=== PATIENT | female | born 1945 | race Caucasian/White ===

== ENCOUNTER 2021-06-17 12:21 | Emergency (ER) | payer MEDICARE ==
[~2021-06-17] VITALS: Ht 157.5 cm; Wt 86.2 kg
[~2021-06-17 12:21] MED LIST: ASPI81EC PO; FAMO20 PO; RXONDA4ODT MM
[2021-06-17] MEDS ORDERED: ACET325 PO (12:30)
[2021-06-17 12:37] LABS: BASOPHILS ABSOLUTE AUTO 0.02 K/mm3 (0.00-0.23); BASOPHILS PERCENT AUTO 0 % (0-2); EOSINOPHILS ABSOLUTE AUTO 0.02 K/mm3 (0.00-0.68); EOSINOPHILS PERCENT AUTO 0 % (0-6); Hematocrit 43.2 % (33.0-51.0); Hemoglobin 14.5 g/dL (11.5-16.0); IMMATURE GRAN ABSOLUTE AUTO 0.04 K/mm3 (0.00-0.10); IMMATURE GRAN PERCENT AUTO 0 % (0-1); LYMPHOCYTES ABSOLUTE AUTO 1.53 K/mm3 (0.84-5.20); LYMPHOCYTES PERCENT AUTO 16 % (21-46); MONOCYTES ABSOLUTE AUTO 0.97 K/mm3 (0.16-1.47); MONOCYTES PERCENT AUTO 10 % (4-13); Mean Corpuscular HGB 32.7 pg (26.0-34.0); Mean Corpuscular HGB Conc 33.6 g/dL (31.5-36.5); Mean Corpuscular Volume 98 fL (80-100); Mean Platelet Volume 9.7 fL (9.1-12.4); NEUTROPHILS ABSOLUTE AUTO 6.77 K/mm3 (1.96-9.15); NEUTROPHILS PERCENT AUTO 72 % (41-73); Platelet Count 225 K/mm3 (150-400); RDW Coefficient Variation 12.8 % (11.7-14.2); RDW Standard Deviation 45.9 fL (35.1-46.3); Red Blood Cell Count 4.43 M/mm3 (3.80-5.20); White Blood Cell Count 9.35 K/mm3 (4.00-11.30)
[2021-06-17 12:58] LABS: Alanine Aminotransfer (ALT/SGP 53 U/L (12-78); Albumin, Blood 3.6 g/dL (3.4-5.0); Albumin/Globulin Ratio 0.9 (0.8-1.8); Alk Phos 66 U/L (50-136); Anion Gap 6 mmol/L (6-16); Aspartate Aminotrans (AST/SGOT 32 U/L (12-37); Bilirubin, Total 0.4 mg/dL (0.1-1.0); Blood Urea Nitrogen 22 mg/dL (8-24); Bun/Creatinine Ratio 27.4 (12.0-20.0); CO2, Blood 25 mmol/L (21-32); Calcium, Blood 9.4 mg/dL (8.5-10.1); Chloride, Blood 108 mmol/L (98-108); Globulin, Blood 4.1 g/dL (2.2-4.0); Glomerular Filtration Rate >60 (60-); Glucose, Blood 105 mg/dL (70-99); Sodium, Blood 139 mmol/L (136-145); Total Protein, Blood 7.7 g/dL (6.4-8.2)
[2021-06-17] MEDS ORDERED: MECL25 PO (14:10)
== END 2021-06-17 14:15 | disposition home or self-care (01) ==
LOC: ER 12:21
PROVIDERS: Emergency Medicine
DX: H81.399 Other peripheral vertigo, unspecified ear (principal)
CPT/HCPCS: 80053; 85025; 93005; 93010; 99284-25; A9270

== ENCOUNTER 2024-08-26 09:41 | Day surgery (SDC) | payer MEDICARE ==
[~2024-08-26] VITALS: Ht 157.5 cm; Wt 90.7 kg
[~2024-08-26 09:41] MED LIST changes: +ACET325 PO; +AMBIEN5 MG PO; +ASCORBIC ACID500 MG PO; +Balanced Salt Epinephrine Irrigation Solution 500 mL IR SCH; +CLOBETASOL EMOL15 G1; +Fosamax70 MG PO; +Lidocaine HCl/Pf 1% 5 ML VIAL XX SCH; +MECL25 PO; +Moxifloxacin HCL 0.5 MG/0.1 ML 0.4MLSYR RIGHTEYE SCH; +NS 500 ML IV ONE; +PHENYLEPHRINE\\TROPICAMIDE\\TETRACAINE OPHTHALMIC DILATING SOLN RIGHTEYE PRN; +Povidone-Iodine 450 DROP/30 ML Solution ONE; +Povidone-Iodine 450 DROP/30 ML Solution RIGHTEYE SCH; +Tetracaine HCl/Pf 0.5% Opth Soln 4 ml ONE
[2024-08-26] MEDS ORDERED: Diazepam 10 MG Tab ONE (10:03)
[2024-08-26] MEDS ORDERED: TRAM50 PO (10:22)
[2024-08-26] MEDS ORDERED: FISH OIL 1,0001 EA10 PO (10:23)
[2024-08-26] MEDS ORDERED: TOCO1000 PO (10:23)
[2024-08-26] MEDS ORDERED: Aspir 8181 MG PO (10:23)
[2024-08-26] MEDS ORDERED: UBID10 PO (10:24)
[2024-08-26] MEDS ORDERED: THERA-D2000 UNIT PO (10:24)
[2024-08-26] MEDS ORDERED: Vitamin and Mi1 EACH PO (10:24)
[2024-08-26] MEDS ORDERED: SUPER B-50 COM1 EACH PO (10:24)
[2024-08-26 11:50] VITALS: BP 136/62
== END 2024-08-26 12:20 | disposition home or self-care (01) ==
LOC: ORSCSDS 09:41
PROVIDERS: Student in an Organized Health Care Education/Training Program
PROC: 08RJ3JZ Replacement of Right Lens with Synthetic Substitute, Percutaneous Approach (ICD-10-PCS; principal; 2024-08-26 11:00)
DX: H25.811 Combined forms of age-related cataract, right eye (principal); Z96.1 Presence of intraocular lens; H04.123 Dry eye syndrome of bilateral lacrimal glands; H11.002 Unspecified pterygium of left eye; E66.9 Obesity, unspecified; Z79.899 Other long term (current) drug therapy
CPT/HCPCS: A9270; J7040; V2632

== ENCOUNTER 2024-09-01 12:24 | Day surgery (SDC) | payer MEDICARE ==
[~2024-09-01] VITALS: Ht 157.5 cm; Wt 90.7 kg
[~2024-09-01 12:24] MED LIST changes: +Aspir 8181 MG PO; +FISH OIL 1,0001 EA10 PO; +Moxifloxacin HCL 0.5 MG/0.1 ML 0.4MLSYR LEFTEYE SCH; -Moxifloxacin HCL 0.5 MG/0.1 ML 0.4MLSYR RIGHTEYE SCH; +PHENYLEPHRINE\\TROPICAMIDE\\TETRACAINE OPHTHALMIC DILATING SOLN LEFTEYE PRN; -PHENYLEPHRINE\\TROPICAMIDE\\TETRACAINE OPHTHALMIC DILATING SOLN RIGHTEYE PRN; +Povidone-Iodine 450 DROP/30 ML Solution LEFTEYE SCH; -Povidone-Iodine 450 DROP/30 ML Solution RIGHTEYE SCH; +SUPER B-50 COM1 EACH PO; +THERA-D2000 UNIT PO; +TOCO1000 PO; +TRAM50 PO; +UBID10 PO; +Vitamin and Mi1 EACH PO
[2024-09-01] MEDS ORDERED: NS 500 ML IV ONE (12:46)
[2024-09-01] MEDS ORDERED: ACET500 PO (12:48)
[2024-09-01] MEDS ORDERED: Midazolam HCl 1MG / ML 2ML Vial ONE (13:05)
[2024-09-01] MEDS ORDERED: FentaNYL Citrate 50 MCG/ML 2 ML Injection ONE (13:07)
[2024-09-01 13:57] VITALS: BP 165/63
[2024-09-01] MEDS ORDERED: Acetaminophen 500 MG Tab ONE (14:06)
--- NOTE | 2024-09-01 14:25 | NUR ---
09/01/24 1425 Abdoul Shaver ACETAMINOPHEN 1GM PO PROVIDED PRIOR TO DISCHARGE FOR EYE PAIN TO BOTH EYES AT 02/25
== END 2024-09-01 14:19 | disposition home or self-care (01) ==
LOC: ORSCSDS 12:24
PROVIDERS: Student in an Organized Health Care Education/Training Program
PROC: 08P Eye, Removal (ICD-10-PCS; principal; 2024-09-01 13:45)
PROC: 08RK3JZ Replacement of Left Lens with Synthetic Substitute, Percutaneous Approach (ICD-10-PCS; principal; 2024-09-01 13:45)
DX: H25.812 Combined forms of age-related cataract, left eye (principal); H59.021 Cataract (lens) fragments in eye following cataract surgery, right eye; Z79.899 Other long term (current) drug therapy; H11.002 Unspecified pterygium of left eye; E66.9 Obesity, unspecified
CPT/HCPCS: A9270; J2250; J3010; J7040; V2632

== ENCOUNTER → 2024-10-28 | Outpatient (CLI) | payer MEDICARE ==
[~2024-10-28] MED LIST changes: +ACET500 PO; -Balanced Salt Epinephrine Irrigation Solution 500 mL IR SCH; -Lidocaine HCl/Pf 1% 5 ML VIAL XX SCH; -Moxifloxacin HCL 0.5 MG/0.1 ML 0.4MLSYR LEFTEYE SCH; -NS 500 ML IV ONE; -PHENYLEPHRINE\\TROPICAMIDE\\TETRACAINE OPHTHALMIC DILATING SOLN LEFTEYE PRN; -Povidone-Iodine 450 DROP/30 ML Solution LEFTEYE SCH; -Povidone-Iodine 450 DROP/30 ML Solution ONE; -Tetracaine HCl/Pf 0.5% Opth Soln 4 ml ONE
[2024-10-28 10:01] LABS: Source, Urine Clean Catch
[2024-10-28 10:04] LABS: Appearance, Urine Clear (Clear); Bilirubin, Urine Neg (Neg); Blood, Urine Neg (Neg); Color, Urine Yellow (P-Yellow); Glucose Qualitative, Urine Neg (Normal); Ketones, Urine Neg (Neg); Leukocyte Esterase, Urine Neg (Neg); Nitrite, Urine Neg (Neg); Protein, Urine Neg (Neg); Urobilinogen, Urine NORM (Normal)
== END | disposition home or self-care (01) ==
LOC: LAB 09:25 → LAB SHORT 09:25
PROVIDERS: Physician Assistant
DX: R30.0 Dysuria (principal)
CPT/HCPCS: 81003

== ENCOUNTER → 2025-04-22 | Outpatient (CLI) | payer MEDICARE ==
[2025-04-23 11:31] LABS: Stool Occult Bld Immuno 1 Negative (NEGATIVE)
== END ==
LOC: LAB 11:30 → LAB SHORT 11:30
PROVIDERS: Physician Assistant
DX: D50.9 Iron deficiency anemia, unspecified (principal)
CPT/HCPCS: G0328